=== PATIENT | male | born 1950 | race Caucasian/White ===

== ENCOUNTER 2018-01-20 20:01 | Emergency (ER) | payer MEDICARE, SELFPAY ==
[2018-01-20 20:02] VITALS: BP 128/61; PULSE 71; RESP 16; TEMP 36.6; BMI 20.9
--- NOTE | 2018-01-20 20:40 | ED.DCSUM_ITS ---
- ER Visit Summary Date of Service: 01/20/18 Chief Complaint: Foreign body in left eye History of Present Illness: The patient is a 67 M who presents for foreign body in left eye after grinding metal without eye protection. Patient complains of foreign body sensation but no significant pain. He wears eyeglasses but no contacts. No vision changes or other complaints. No medical history. Tetanus is up-to-date. Physical Examination: Patient is well-nourished and well-developed, sitting in bed in no distress with the lights on. Conjunctivae are normal without injection. Normal inspection of the eyelids and periorbital regions. Pupils equal round reactive to light and extraocular movement intact. Examination of the left cornea shows a round pitting consistent with foreign body that has now been removed. No foreign body noted. Patient tolerated exam without tetracaine instilled. Remainder of exam unremarkable. Test Results: [] Emergency Department Course and Treatment: Patient has evidence on eye exam that there had been a foreign body that is now come out without intervention. Patient declined tetracaine instilled meant for pain control and declined any other pain treatment. He stated he was not really that uncomfortable, and he thought the foreign body may have come out already. He was given erythromycin ointment for infection prophylaxis. He will follow-up with his eye doctor this week. Discharged home. Treatment Plan: [] Disposition: [] Impression: Left corneal foreign body, resolved This note was generated with [employer] dictation software. It may contain incorrect words, spelling, and punctuation that were not noted in review of the chart prior to signing ED Disposition - Plan for ED Patient: Disposition: Home or Assisted Living Chief Complaint: Eye Problem Instructions: ED Foreign Body Cornea Referrals: Care Physician,No Primary [Primary Care Provider] - Doctor,Your [STAFF PHYSICIAN] - 1-2 Days if not improving Additional Instructions: The piece of metal in your eye was already out when your eye was examined in the emergency department. There is a small abrasion on the cornea where the metal was. Please use the erythromycin ophthalmic ointment as prescribed to help prevent infection. Follow up with your eye doctor in 1-2 days. If you have any worsening of your condition or any new concerning symptoms, please return immediately to the emergency department for another evaluation.
[2018-01-20] MEDS: Erythromycin Base 1 OPTH.TUBE 1 APPLIC LEFT EYE (20:53)
[2018-01-20 20:59] VITALS: BP 128/56; PULSE 88
== END 2018-01-20 21:00 | disposition home or self-care (01) ==
LOC: ED 20:52
PROVIDERS: Emergency Provider Emergency Medicine
DX: T15.02XA Foreign body in cornea, left eye, initial encounter (principal); X58.XXXA Exposure to other specified factors, initial encounter; Y93.9 Activity, unspecified; Y92.9 Unspecified place or not applicable
CPT/HCPCS: 99282

== ENCOUNTER → 2024-03-26 | Outpatient (CLI) | payer MEDICARE, SELFPAY ==
[2024-03-26 13:37] LABS: Absolute Lymphocyte Count 0.86 X10^3/uL (0.83-4.51); Absolute Neutrophil Count 2.8 X10^3/uL (2.0-7.7); Basophil# 0.03 X10^3/uL; Basophil% 0.7 % (0-1); Eosinophil# 0.26 X10^3/uL; Eosinophils% 5.8 % (0-5); Hemoglobin 13.9 g/dL (13.0-16.5); Lymphocyte # 0.86 X10^3/ul (0.83-4.51); Mean Corp Hgb Conc 32.3 g/dL (32-36); Mean Corpuscular Hgb 30.2 pg (27.0-32.0); Mean Corpuscular Volume 93.5 fL (80-94); Mean Platelet Vol. 9.9 fl (6.2-12.0); Monocyte# 0.57 X10^3/uL; Monocyte% 12.6 % (0-10); NRBC Flagged by Analyzer 0 % (0-5); Neutrophil # 2.79 X10^3/uL (2.7-7.7); Neutrophil % 61.7 % (47-70); Platelet Count 155 K/mm3 (150-450); RBC Distribution Width CV 12.3 % (11.6-14.6); RBC Distribution Width SD 42.3 fl (35.1-43.9); White Blood Count 4.5 K/mm3 (4.4-11.0)
[2024-03-26 14:13] LABS: AST(SGOT) 28 U/L (15-37); Alanine Aminotransfer ALT/SGPT 35 U/L (16-61); Albumin, Serum 3.7 g/dL (3.2-5.0); Alkaline Phosphatase 73 U/L (45-117); Anion Gap 5 (5-15); BUN 16 mg/dL (7-18); BUN/Creat Ratio 16.2 RATIO (10-20); Calcium,Total 9.2 mg/dL (8.5-10.1); Chloride 104 mmol/L (98-107); Creatinine, Serum 0.99 mg/dL (0.70-1.30); EST Glomerular Filtration Rate 79 mL/min (>60); Est Glom Filt Rate - Afr Amer 95 mL/min (>60); Globulin 3.7 g/dL (2.2-4.2); Glucose 101 mg/dL (74-106); Potassium 4.2 mmol/L (3.5-5.1); Protein, Total 7.4 g/dL (6.4-8.2); Sodium Level 137 mmol/L (136-145)
== END | disposition home or self-care (01) ==
PROVIDERS: PCP Internal Medicine; Referring Provider Internal Medicine; Visit Provider Internal Medicine
DX: R63.4 Abnormal weight loss (principal)
CPT/HCPCS: 36415; 80053; 85025